=== PATIENT | female | born 2005 | race Caucasian/White ===

== ENCOUNTER 2024-10-31 02:20 | Day surgery (SDC) | payer OTHER, SELFPAY ==
[2024-10-17 13:46] VITALS: BMI 29.2
[2024-10-31 08:15] VITALS: BP 108/90; PULSE 80; RESP 18; TEMP 36.7; O2SAT 100; BMI 29.7
[2024-10-31 08:19] LABS: BEDSIDEPREGUCG Negative (Negative)
--- NOTE | 2024-10-31 08:22 | WPDANESEPPF ---
Anes - Initial Pre Proc Eval Procedure: Operation Date: 10/31/24 09:00 Proposed Procedures p Esophagogastroduodenoscopy - Avinash Mccann MD Date/Time: 10/31/24 08:22 Surgeon: Avinash Mccann MD Pre Op Diagnosis: Gastro-esophageal reflux disease without esophagit Patient Data Age: 18 Gender: F Height: 1.63 m Weight: 78.7 kg Last Vital Signs Temp 36.7 C 10/31/24 08:15 Pulse 80 10/31/24 08:15 Resp 18 10/31/24 08:15 BP 108/90 10/31/24 08:15 Pulse Ox 100 10/31/24 08:15 O2 Del Method Room Air 10/31/24 08:15 Allergies Allergy/AdvReac Type Severity Reaction Status Date / Time No Known Allergies Allergy Mild Verified 10/31/24 08:14 Home Medications ?Medication ?Instructions ?Recorded ?Confirmed ?Type albuterol sulfate 90 mcg/actuation 1 puff inhalation Q4H PRN 06/25/24 10/17/24 History aerosol inhaler (Ventolin HFA) shortness of breath or wheezing famotidine 20 mg tablet 20 mg PO DAILY #30 tabs 06/25/24 10/17/24 Rx Laboratory Tests 10/31/24 08:15 POC Urine HCG, Qual Negative (Negative) Patient hx anesthesia problems: none Family hx anesthesia problems: none Results Review: All pre-operative results and documents have been reviewed as part of the pre-operative evaluation. [facility] Past Medical History Medical History Asthma Family History Family History Mother Depression Anxiety Thyroid disorder Grandparent Diabetes mellitus Thyroid disorder Alcoholism Heart disease Hypertension Social History Social History Social History: Caffeine-daily Smoking status: Never smoker Alcohol intake: never Substance use: never Substance use type: does not use Do You Feel Safe in your Home?: Yes Lack of Transportation: No Lack of Food: Never True Current Housing: I Have Housing Concerned About Future Housing: No Difficulty Paying Gas/Electric Bills: No Difficulty Paying for Meds: No Currently Unemployed: No Education: High School Diploma/GED Difficulty w/ Childcare or Family Care: No Living arrangements: with family Gender identity (if verbalized by the patient): Female Spiritual care concerns: No Agree to blood products: Yes Anes - Eval Final PreProcedure Day of Procedure 10/31/24 08:22 Patient weight: overweight Heart: regular rate and rhythm Lungs: clear to auscultation Airway: Mallampati scale class II Neurological: alert and oriented Last oral intake: >/= 8 hours ASA classification: II Emergent: no Anesthetic plan: proceed Anesthesia type and monitoring: general GIVS and standard monitoring Results Review: All pre-operative results and documents have been reviewed as part of the pre-operative evaluation. Informed Consent: The patient's anesthetic plan and its attendant risks and benefits were discussed with the patient/family/POA. Questions were solicited and answers provided to the satisfaction of the patient/family/POA.
[2024-10-31] MEDS: LACTATED RINGERS 1,000 ML 150 ML IV CONT (08:25)
--- NOTE | 2024-10-31 09:26 | PM.HPGS ---
History of Present Illness History of Present Illness Consent: Risks, benefits, and alternatives have been discussed and questions answered. Patient agrees to proceed with procedure. Chief complaint: Gastro-esophageal reflux disease without esophagit Narrative: Denita Garza is a 18 year old female with bloating, never had egd Review of Systems Review of Systems: All systems reviewed & are unremarkable except as noted in HPI and below PMFSH Past Medical History Medical History Asthma Family History Family History Mother Depression Anxiety Thyroid disorder Grandparent Diabetes mellitus Thyroid disorder Alcoholism Heart disease Hypertension Social History Social History Social History: Caffeine-daily Smoking status: Never smoker Alcohol intake: never Substance use: never Substance use type: does not use Do You Feel Safe in your Home?: Yes Lack of Transportation: No Lack of Food: Never True Current Housing: I Have Housing Concerned About Future Housing: No Difficulty Paying Gas/Electric Bills: No Difficulty Paying for Meds: No Currently Unemployed: No Education: High School Diploma/GED Difficulty w/ Childcare or Family Care: No Living arrangements: with family Gender identity (if verbalized by the patient): Female Spiritual care concerns: No Agree to blood products: Yes Meds Home Medications and Allergies Home Medications ?Medication ?Instructions ?Recorded ?Confirmed ?Type albuterol sulfate 90 mcg/actuation 1 puff inhalation Q4H PRN 06/25/24 10/17/24 History aerosol inhaler (Ventolin HFA) shortness of breath or wheezing famotidine 20 mg tablet 20 mg PO DAILY #30 tabs 06/25/24 10/17/24 Rx Allergies Allergy/AdvReac Type Severity Reaction Status Date / Time No Known Allergies Allergy Mild Verified 10/31/24 08:14 Vital Signs Vital Signs - 24 hr 10/31/24 08:15 Temperature 98.1 F Pulse Rate 80 Respiratory Rate 18 Blood Pressure 108/90 Pulse Oximetry 100 Oxygen Delivery Room Air Exam Const: General: comfortable and no acute distress HENMT: Face/Nose/Sinus: Normal nares present Eyes: General: appearance normal, both eyes and all related structures Neck: Neck: no JVD Resp: Auscultation: clear to auscultation bilaterally Cardio: Rate: regular rate Rhythm: regular rhythm GI: Inspection: non-distended GI Palp: Yes Soft to palpation Skin: General skin exam: normal color Neuro: Speech: normal speech Extrem: General: normal to inspection Psych: Mental Status: mental status grossly normal Assessment and Plan Assessment and plan (1) Abdominal bloating: Code(s): R14.0 - Abdominal distension (gaseous) Status: Acute Assessment and Plan: egd with bx
--- NOTE | 2024-10-31 09:32 | S_PTH ---
PATIENT: Denita Garza LOC: [facility]#:[id number] AGE/SX: 18/F ROOM: RE10/31/[address]: Avinash Mccann MD : 2005 BED: DIS: 10/31/2024 SPEC #: [id number] RECD: 10/31/24 11:45 STATUS: TORREY REZohreh #: [id number] RENAN: 10/31/24 09:[address]: Avinash Mccann DEPT: [facility] Surgical RECD BY: Dafne Jansen ENTERED: 10/31/24 11:46 SP TYPE: Surgical OTHR DR: Yumiko Edge, DAMARIS Tissues: A - Small Bowel Bx B - Gastric Biopsy Procedures: Hematoxylin and Eosin Stain Gross and Microscopic Level 4
[2024-10-31 09:35] VITALS: BP 102/46; PULSE 76; RESP 26; O2SAT 98
[2024-10-31 09:45] VITALS: BP 104/63; PULSE 79; RESP 18; O2SAT 100
[2024-10-31 09:55] VITALS: BP 111/61; PULSE 76; RESP 20; O2SAT 100
== END 2024-10-31 10:00 | disposition home or self-care (01) ==
PROVIDERS: Anesthesiology; PCP Nurse Practitioner Family; Visit Provider Internal Medicine Gastroenterology
PROC: 0DJ08ZZ Inspection of Upper Intestinal Tract, Via Natural or Artificial Opening Endoscopic (ICD-10-PCS; CPT 43239; principal; 2024-10-31 09:00)
DX: K31.89 Other diseases of stomach and duodenum (principal); J45.909 Unspecified asthma, uncomplicated; Z79.51 Long term (current) use of inhaled steroids; Z82.49 Family history of ischemic heart disease and other diseases of the circulatory system
CPT/HCPCS: 43239; 88305; J2003; J2704; J7120